=== PATIENT | male | born 1995 | race Caucasian/White ===

== ENCOUNTER 2021-11-29 16:47 | Emergency (ER) | payer SELFPAY ==
--- NOTE | 2021-11-29 17:44 | NUR ---
CALLED FOR TRIAGE IN THE WAITING ROOM, NO RESPONSE.
--- NOTE | 2021-11-29 17:56 | NUR ---
PT LEFT BEFORE GETTING TRIAGE.
== END 2021-11-29 17:57 | disposition left against medical advice (07) ==
LOC: ER 16:55
DX: Z53.21 Procedure and treatment not carried out due to patient leaving prior to being seen by health care provider (principal)